=== PATIENT | male | born 1950 | race Caucasian/White ===

== ENCOUNTER 2022-04-06 08:24 | Emergency (ER) | payer MEDICARE ==
[~2022-04-06] VITALS: Ht 172.7 cm; Wt 86.4 kg
[~2022-04-06 08:24] MED LIST: ATORVASTATIN; ESCITALOPRAM; LORTAB 5/500 501 TAB PO
[2022-04-06 08:29] VITALS: TEMP 97.5
[2022-04-06 09:16] VITALS: BP 134/93; PULSE 60
== END 2022-04-06 09:15 | disposition home or self-care (01) ==
LOC: COL.ER 08:24
DX: R04.0 Epistaxis (principal)